=== PATIENT | female | born 1985 | race Caucasian/White ===

== ENCOUNTER 2019-07-19 13:02 | Emergency (ER) | payer SELFPAY ==
[2019-07-19] MEDS ORDERED: ONDANSETRON HCL INJ/PF 4 MG/2 ML SDV IV ONE (13:35)
[2019-07-19] MEDS ORDERED: NORMAL SALINE 1000 ML 1,000 ML IV ONE (13:36)
--- NOTE | 2019-07-19 13:40 | ER Document Report ---
ED Medical Screen (RME) - General Chief Complaint: Nausea/Vomiting Stated Complaint: VOMITING,ABDOMINAL PAIN,NAUSEA Time Seen by Provider: 07/19/19 13:31 Primary Care Provider: YONAS SCHUMACHER MD [Primary Care Provider] - Follow up as needed Mode of Arrival: Ambulatory Information source: Patient Notes: 33-year-old female presents emergency department with abdominal pain and vomiting at least 7 times this morning. Reports history of this vomiting and abdominal pain for the past couple months. She reports she quit taking supplements vomiting the pain went away. She recently started taking them and symptoms return today. Patient also reports that she was in the [facility] 2 weeks ago. She reports she is taking an antifungal supplement, zinc, B12. I have greeted and performed a rapid initial assessment of this patient. A comprehensive ED assessment and evaluation of the patient, analysis of test results and completion of the medical decision making process will be conducted by additional ED providers. Dictation of this chart was performed using voice recognition software; therefore, there may be some unintended grammatical errors. TRAVEL OUTSIDE OF THE [place] IN LAST 30 DAYS: Yes COUNTRY TRAVELED TO/FROM: [facility] - Related Data Allergies/Adverse Reactions: No Known Allergies Allergy (Verified 07/19/19 13:10) Past Medical History - Social History Chew tobacco use (# tins/day): No Frequency of alcohol use: Occasional Drug Abuse: None - Past Medical History Cardiac Medical History: Denies: Hx Coronary Artery Disease, Hx Heart Attack, Hx Hypertension - HYPO Pulmonary Medical History: Denies: Hx Asthma, Hx Bronchitis, Hx COPD, Hx Pneumonia Neurological Medical History: Denies: Hx Seizures Musculoskeltal Medical History: Denies Hx Arthritis Past Surgical History: Reports: Hx Breast Surgery - augmentation, Hx Section, Hx Hysterectomy - Immunizations Hx Diphtheria, Pertussis, Tetanus Vaccination: No Physical Exam - Vital signs Vitals: Temp Pulse Resp BP Pulse Ox 98.0 F 108 H 15 112/73 100 07/19/19 13:07 07/19/19 13:07 07/19/19 13:07 07/19/19 13:07 07/19/19 13:07 Course - Vital Signs Vital signs: Temp Pulse Resp BP Pulse Ox 98.0 F 108 H 15 112/73 100 07/19/19 13:07 07/19/19 13:07 07/19/19 13:07 07/19/19 13:07 07/19/19 13:07 Doctor's Discharge - Discharge Referrals: YONAS SCHUMACHER MD [Primary Care Provider] - Follow up as needed
[2019-07-19 13:58] LABS: HEMOGLOBIN 14.9 g/dL (12.0-15.5); MEAN CORPUSCULAR HEMOGLOBIN 28.8 pg (27.0-33.4); MEAN CORPUSCULAR HGB CONC 33.1 g/dL (32.0-36.0); MEAN CORPUSCULAR VOLUME 87 fl (80-97); PLATELET COUNT 248 10^3/uL (150-450); RED BLOOD COUNT 5.16 10^6/uL (3.72-5.28); RED CELL DISTRIBUTION WIDTH 13.4 % (11.5-14.0); WHITE BLOOD COUNT 22.6 10^3/uL (4.0-10.5)
[2019-07-19 14:10] LABS: APPEARANCE,URINE CLEAR; COLOR,URINE LIGHT YELLOW
[2019-07-19 14:11] LABS: ADD MANUAL MICROSCOPIC YES; BILIRUBIN,URINE NEGATIVE (NEGATIVE); GLUCOSE, URINE NEGATIVE (NEGATIVE); KETONES,URINE NEGATIVE (NEGATIVE); LEUKOCYTE ESTERASE,URINE NEGATIVE (NEGATIVE); NITRITE,URINE NEGATIVE (NEGATIVE); PROTEIN,URINE NEGATIVE (NEGATIVE); URINE SPECIFIC GRAVITY 1.011; UROBILINOGEN,URINE NEGATIVE mg/dL (<2.0)
[2019-07-19 14:12] LABS: RBC,URINE RARE /HPF
[2019-07-19 14:15] LABS: ALBUMIN 4.8 g/dL (3.5-5.0); ALKALINE PHOSPHATASE 43 U/L (38-126); ANION GAP 12 (5-19); ASPARTATE AMINO TRANSFERASE 26 U/L (14-36); BILIRUBIN,DIRECT 0.2 mg/dL (0.0-0.4); BILIRUBIN,TOTAL 0.6 mg/dL (0.2-1.3); BLOOD UREA NITROGEN 8 mg/dL (7-20); CALCIUM 9.5 mg/dL (8.4-10.2); CARBON DIOXIDE 23 mmol/L (22-30); CHLORIDE 106 mmol/L (98-107); GLUCOSE 90 mg/dL (75-110); POTASSIUM 4.7 mmol/L (3.6-5.0); TOTAL PROTEIN 7.9 g/dL (6.3-8.2)
[2019-07-19 14:22] LABS: ABSOLUTE MONOCYTES # (MANUAL) 1.8 10^3/uL (0.1-1.4); BAND NEUTROPHILS % (MANUAL) 4 % (3-5); BASOPHILS % (MANUAL) 0 % (0-2); EOSINOPHILS % (MANUAL) 0 % (0-6); LYMPHOCYTES % (MANUAL) 9 % (13-45); MONOCYTES % (MANUAL) 8 % (3-13); PLATELET COMMENT ADEQUATE; RBC MORPHOLOGY COMMENT NORMO-CYTIC/CHROMIC; SEGMENTED NEUTROPHILS % (MAN) 79 % (42-78); TOTAL CELLS COUNTED 100
--- NOTE | 2019-07-19 15:58 | RADIOLOGY REPORT (SQ) ---
EXAM DESCRIPTION: CT ABD/PELVIS NO ORAL OR IV COMPLETED DATE/TIME: 07/19/2019 3:41 pm REASON FOR STUDY: pain diffuse/vomit COMPARISON: None. TECHNIQUE: CT scan of the abdomen and pelvis performed without intravenous or oral contrast. Images reviewed with lung, soft tissue, and bone windows. Reconstructed coronal and sagittal MPR images revi ewed. All images stored on PACS. All CT scanners at this facility use dose modulation, iterative reconstruction, and/or weight based d osing when appropriate to reduce radiation dose to as low as reasonably achievable (ALARA). [facility]: Dose Right [facility]: CareDose [facility]: Dose Right [facility]: Teradose 4D [facility]: [employer] RADIATION DOSE: CT Rad equipment meets quality standard of care and radiation dose reduction techniq ues were employed. CTDIvol: 4.8 mGy. DLP: 242 mGy-cm.mGy. LIMITATIONS: None. FINDINGS: LOWER CHEST: No significant findings. No nodules or infiltrates. NON-CONTRASTED LIVER, SPLEEN, ADRENALS: Evaluation limited by lack of IV contrast. No identified sign ificant masses. PANCREAS: No masses. No peripancreatic inflammatory changes. GALLBLADDER: No identified stones by CT criteria. No inflammatory changes to suggest cholecystitis. RIGHT KIDNEY AND URETER: No suspicious masses. Assessment limited by lack of IV contrast. No signif icant calcifications. No hydronephrosis or hydroureter. LEFT KIDNEY AND URETER: No suspicious masses. Assessment limited by lack of IV contrast. No signifi cant calcifications. No hydronephrosis or hydroureter. AORTA AND RETROPERITONEUM: No aneurysm. No retroperitoneal masses or adenopathy. BOWEL AND PERITONEAL CAVITY: No obvious masses or inflammatory changes. No free fluid. Very large bu rden of stool in the colon with dense stool balls in the rectum. APPENDIX: The appendix is not clearly visualized on noncontrast examination with slender body habitus , however there is a candidate retrocecal appendix with air and a probable small appendicolith (serie s 602, image 30). No evidence of adjacent inflammation PELVIS, BLADDER, AND ABDOMINAL WALL:No abnormal masses. Status posthysterectomy. No free fluid. Gomez dder normal. BONES: No significant findings. OTHER: No other significant finding. IMPRESSION: 1. No definite noncontrast CT findings to explain abdominal pain, nausea, and vomiting. 2. Very large burden of stool in the colon with dense stool balls in the rectum. 3. The appendix is not clearly visualized on noncontrast examination with slender body habitus, howev er there is a small candidate retrocecal appendix with air and a probable small appendicolith (series 602, image 30). No evidence of adjacent inflammation. COMMENT: Quality ID # [id number]: Final reports with documentation of one or more dose reduction techniques (e.g., Automated exposure control, adjustment of the mA and/or kV according to patient size, use of iterative reconstruction technique) TECHNICAL DOCUMENTATION: JOB ID: [id number] [employer]- All Rights Reserved Reading location - IP/workstation name: [email or web address]
--- NOTE | 2019-07-19 16:33 | ER Document Report ---
ED General - General Chief Complaint: Nausea/Vomiting Stated Complaint: VOMITING,ABDOMINAL PAIN,NAUSEA Time Seen by Provider: 07/19/19 13:31 Primary Care Provider: YONAS SCHUMACHER MD [EMERITUS] - Follow up as needed Mode of Arrival: Ambulatory Information source: Patient TRAVEL OUTSIDE OF THE [place] IN LAST 30 DAYS: Yes COUNTRY TRAVELED TO/FROM: [facility] Notes: Patient presents with abdominal pain and vomiting. Patient states that she has been seeing a homeopathic doctor who has been doing a got cleanse for yeast. She states that she has been taking different supplements from this homeopathic doctor over the last several weeks. She states over the last several days she has been developing severe abdominal cramps and vomiting. She states today she had retching approximately 7 times. So she came to the emergency department. By the time I see the patient in the room she states she is feeling much better. She states abdominal pain is bilateral lower and crampy. It was moderate to severe but is now essentially gone. It did not radiate anywhere. Nothing made it better or worse. It was crampy in nature. No vaginal discharge or bleeding. No problems with urination. She has had chronic constipation. But this is not new, the constipation is not. - Related Data Allergies/Adverse Reactions: No Known Allergies Allergy (Verified 07/19/19 13:10) Past Medical History - General Information source: Patient - Social History Smoking Status: Never Smoker Chew tobacco use (# tins/day): No Frequency of alcohol use: Occasional Drug Abuse: None Family History: Reviewed & Not Pertinent Patient has suicidal ideation: No Patient has homicidal ideation: No - Past Medical History Cardiac Medical History: Denies: Hx Coronary Artery Disease, Hx Heart Attack, Hx Hypertension - HYPO Pulmonary Medical History: Denies: Hx Asthma, Hx Bronchitis, Hx COPD, Hx Pneumonia Neurological Medical History: Denies: Hx Seizures Musculoskeletal Medical History: Denies Hx Arthritis Past Surgical History: Reports: Hx Breast Surgery - augmentation, Hx Section, Hx Hysterectomy - Immunizations Hx Diphtheria, Pertussis, Tetanus Vaccination: No Review of Systems - Review of Systems Constitutional: denies: Chills, Fever Cardiovascular: denies: Chest pain, Palpitations Respiratory: denies: Cough, Short of breath -: Yes All other systems reviewed and negative Physical Exam - Vital signs Vitals: Temp Pulse Resp BP Pulse Ox 98.0 F 108 H 15 112/73 100 07/19/19 13:07 07/19/19 13:07 07/19/19 13:07 07/19/19 13:07 07/19/19 13:07 Interpretation: Normal - General General appearance: Appears well, Alert - HEENT Head: Normocephalic, Atraumatic Eyes: Normal Pupils: PERRL - Respiratory Respiratory status: No respiratory distress Chest status: Nontender Breath sounds: Normal Chest palpation: Normal - Cardiovascular Rhythm: Regular Heart sounds: Normal auscultation Murmur: No - Abdominal Inspection: Normal Distension: No distension Bowel sounds: Normal Tenderness: Tender - minimal bilat lower quads Organomegaly: No organomegaly - Back Back: Normal, Nontender - Extremities General upper extremity: Normal inspection, Nontender, Normal color, Normal ROM, Normal temperature General lower extremity: Normal inspection, Nontender, Normal color, Normal ROM, Normal temperature, Normal weight bearing. No: Thomas's sign - Neurological Neuro grossly intact: Yes Cognition: Normal Orientation: AAOx4 [place] Coma Scale Eye Opening: Spontaneous [place] Coma Scale Verbal: Oriented [place] Coma Scale Motor: Obeys Commands [place] Coma Scale Total: 15 Speech: Normal Motor strength normal: LUE, RUE, LLE, RLE Sensory: Normal - Psychological Associated symptoms: Normal affect, Normal mood - Skin Skin Temperature: Warm Skin Moisture: Dry Skin Color: Normal Course - Re-evaluation Re-evalutation: 07/19/19 16:34 Patient presents with bilateral lower quadrant abdominal pain. She had multiple episodes of vomiting. It was presumed that this was possibly due to all of the homeopathic supplements that she was taking. However her white count did return at 22,000. Therefore CT scan was ordered. It showed an appendix with no surrounding inflammation or signs of appendicitis. However the CT did show a possible stone in the appendix with some air. On reexamination she is tender in both of the lower quadrants although only very mildly. The right is slightly more tender than the left and once again very mildly. She definitely does not have a surgical abdomen on exam at this time. I told the patient that I thought it was best if we repeated the CAT scan with contrast both oral and IV. She states that she did not want to have this done because she does not have money and would prefer to go home and return if she got worse. Her and her significant other both seem very reasonable and this seemed like a reasonable plan. I see this because at this time the patient has normal vital signs and she does not have a surgical abdomen and the CT is equivocal. She could possibly have an elevated white blood cell count from all of the vomiting she has been doing. I did explain to her however that I could not rule out an early appendicitis at this time. She states that she understands and will return if she has any further issues. She states she is feeling significantly better than when she arrived here to the emergency department. - Vital Signs Vital signs: Temp Pulse Resp BP Pulse Ox 98.0 F 108 H 15 112/73 100 07/19/19 13:07 07/19/19 13:07 07/19/19 13:07 07/19/19 13:07 07/19/19 13:07 - Laboratory Result Diagrams: 07/19/19 13:38 07/19/19 13:38 Laboratory results interpreted by me: 07/19/19 13:38 WBC 22.6 H Seg Neuts % (Manual) 79 H Lymphocytes % (Manual) 9 L Abs Neuts (Manual) 18.8 H Abs Monocytes (Manual) 1.8 H - Diagnostic Test Radiology reviewed: Image reviewed, Reports reviewed Discharge - Discharge Clinical Impression: Abdominal pain Qualifiers: Abdominal location: lower abdomen, unspecified Qualified Code(s): R10.30 - Lower abdominal pain, unspecified Condition: Stable Disposition: HOME, SELF-CARE Instructions: Abdominal Pain ([facility]), Observation for Appendicitis ([facility]) Additional Instructions: Please return immediately if problems with pain, vomiting, diarrhea, inability to eat, fevers or any concerns. Referrals: YONAS SCHUMACHER MD [EMERITUS] - Follow up as needed
[2019-07-19 17:13] VITALS: BP 110/70
== END 2019-07-19 17:13 | disposition home or self-care (01) ==
LOC: ER 13:02
DX: R10.30 Lower abdominal pain, unspecified (principal); R11.2 Nausea with vomiting, unspecified; Z90.710 Acquired absence of both cervix and uterus
CPT/HCPCS: 99284; 96361; 96374; 36415; 83690; 85025; 80053; 81001; 74176; J2405; J7030